=== PATIENT | female | born 1960 | race African-American/Black ===

== ENCOUNTER → 2024-06-10 | Day surgery (SDC) | payer MEDICAID ==
[~2024-06-10] VITALS: Ht 154.9 cm; Wt 113.4 kg
[~2024-06-10] MED LIST: AMITRIPTYLINE25 MG PO; ASPIRIN ADULT L81 M1 PO; CARVEDILOL3.125 MG PO; DICYCLOMINE HYD10 MG PO; DILTIAZEM CD240 MG PO; ELIQUIS2.5 M1 PO; ESCITALOPRAM OX20 MG PO; FEROSUL325 M1 PO; GABAPENTIN600 MG PO; HEPARIN SODIUM 1,000 UNIT/ML VIAL IV ONE; HEPARIN SODIUM 500 UNIT/5 ML SYR IV ONE; IOHEXOL 240 MG/ML 20 ML SOL ONE; METOCLOPRAMIDE H5 M1 PO; Magnesium Oxid400 MG PO; OXYBUTYNIN10 MG PO; PANTOPRAZOLE SO40 MG PO; POTASSIUM20 MEQ/16 PO; VITAMIN D250 MCG PO
[2024-06-10 09:30] VITALS: BP 121/51
[2024-06-10 11:49] VITALS: BP 118/47
[2024-06-10 12:04] VITALS: BP 100/49
[2024-06-10 12:19] VITALS: BP 103/43
== END | disposition home or self-care (01) ==
LOC: SDC 06-09 12:30
PROVIDERS: ATTEND Surgery Vascular Surgery
DX: T82.514A Breakdown (mechanical) of infusion catheter, initial encounter (principal); I25.10 Atherosclerotic heart disease of native coronary artery without angina pectoris; E10.22 Type 1 diabetes mellitus with diabetic chronic kidney disease; N18.9 Chronic kidney disease, unspecified; E10.39 Type 1 diabetes mellitus with other diabetic ophthalmic complication; H42 Glaucoma in diseases classified elsewhere; F32.A Depression, unspecified; Z96.653 Presence of artificial knee joint, bilateral; Z90.710 Acquired absence of both cervix and uterus; Z88.0 Allergy status to penicillin; Z91.041 Radiographic dye allergy status; Z88.8 Allergy status to other drugs, medicaments and biological substances; Z79.82 Long term (current) use of aspirin; Z79.899 Other long term (current) drug therapy; Z98.890 Other specified postprocedural states; Y83.8 Other surgical procedures as the cause of abnormal reaction of the patient, or of later complication, without mention of misadventure at the time of the procedure; Y92.89 Other specified places as the place of occurrence of the external cause